=== PATIENT | female | born 1975 | race Caucasian/White ===

== ENCOUNTER 2016-12-19 14:40 | Emergency (ER) | payer MEDICAID ==
[2016-12-19 14:41] VITALS: BMI 30.7
[2016-12-19 15:05] VITALS: BP 110/75; RESP 18; TEMP 99.1; O2SAT 99
[2016-12-19] MEDS ORDERED: Sodium Chloride 0.9% 1,000 ML IV STA (15:19)
--- NOTE | 2016-12-19 15:32 | ED PDOC ---
HPI: Headache Time Seen by Provider: 12/19/16 15:15 Chief Complaint (Nursing): Headache Chief Complaint (Provider): Headache History Per: Patient History/Exam Limitations: no limitations Onset/Duration Of Symptoms: Days (x 1 month) Additional Complaint(s): Mirna is a 41 y/o female who presents to the ED complaining of increasing frequency of headaches behind her right eye over the last month. Seen by PMD and given Rx for Motrin with no relief. Notes additional left arm and left neck pain, with numbness and pain in 4th and 5th digits of left hand. 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 She has an appointment with Neurology scheduled for 01/03/17. PMD: Salomón Quinn Past Medical History Reviewed: Historical Data, Nursing Documentation, Vital Signs Vital Signs: Last Vital Signs Temp 99.1 F 12/19/16 15:02 Pulse 95 H 12/19/16 15:02 Resp 18 12/19/16 15:02 BP 110/75 12/19/16 15:02 Pulse Ox 99 12/19/16 15:02 - Medical History PMH: Migraine (Tumor behind right eye) - Surgical History Other surgeries: Resection of tumor x2 - Family History Family History: States: Unknown Family Hx - Home Medications Home Medications: Ambulatory Orders Medication Instructions Recorded Oxycodone HCl/Acetaminophen 325 mg PO PRN 06/24/15 [Oxycodon-Acetaminophen 2.5-325] Naproxen 1 tab PO BID PRN #14 tab 12/19/16 diaZEpam [Valium] 5 mg PO Q6 PRN #4 tab 12/19/16 - Allergies Allergies/Adverse Reactions: Allergies Allergy/AdvReac Type Severity Reaction Status Date / Time No Known Allergies Allergy Verified 12/19/16 15:02 Review of Systems ROS Statement: Except As Marked, All Systems Reviewed And Found Negative Musculoskeletal: Positive for: Neck Pain (left), Arm Pain (left) Neurological: Positive for: Numbness (and pain to the 4th and 5th fingers of left hand), Headache Physical Exam - Reviewed Nursing Documentation Reviewed: Yes Vital Signs Reviewed: Yes - Physical Exam Appears: Positive for: Non-toxic, No Acute Distress Head Exam: Positive for: ATRAUMATIC, NORMOCEPHALIC. Negative for: NORMAL INSPECTION (Right temporal region signs of craniectomy) Skin: Positive for: Normal Color, Warm, Dry Eye Exam: Positive for: EOMI, Normal appearance, PERRL Neck: Positive for: Normal, Painless ROM, Supple Cardiovascular/Chest: Positive for: Regular Rate, Rhythm. Negative for: Murmur Respiratory: Positive for: Normal Breath Sounds. Negative for: Accessory Muscle Use, Respiratory Distress Extremity: Positive for: Normal ROM, Other (Good hair salon manager strength, 5/5 strength throughout). Negative for: Deformity Neurologic/Psych: Positive for: Alert, news writer II-XII (intact), Oriented (x3). Negative for: Motor/Sensory Deficits, Facial Droop - Laboratory Results Result Diagrams: 12/19/16 15:43 12/19/16 15:43 - ECG O2 Sat by Pulse Oximetry: 99 (RA) Pulse Ox Interpretation: Normal - Progress ED Course And Treament: morphine 4 mg iv x 1 dose zofran 4 mg iv x [address] RESULTS D/W DR. GONGORA. PATIENT HAS HAD HEADACHE X 3 WEEKS AND IS FOLLOWING UP WITH PMD TODAY FOR MRI RX, WILL NOT REPEAT IN ED WITH IV CONTRAST. Medical Decision Making Medical Decision Making: Time: 15:19 Initial Plan: --Ordered labs --Started patient on IV fluids and Reglan --Pending CTs C-spine and Head w/o contrast Time: 16:40 CT Head w/o contrast: FINDINGS: HEMORRHAGE: No intracranial hemorrhage. BRAIN: The lesion best seen in the right middle cranial fossa in prior brain MRI dated 05/26/2015, is poorly differentiated from normal right temporal lobe on the current study and follow-up contrast CT is advised or MRI without contrast for additional characterization if clinically warranted. 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 The remainder of the intracranial contents is remarkable only for dense fall seen calcifications in the periphery of the superior falx. VENTRICLES: Unremarkable. No hydrocephalus. CALVARIUM: As above in brain parenchyma section. PARANASAL SINUSES: Unremarkable as visualized. No significant inflammatory changes. MASTOID AIR CELLS: Unremarkable as visualized. No inflammatory changes. OTHER FINDINGS: None. IMPRESSION: Stable unenhanced head CT compared to 06/24/2015 CT as well as brain MRI 2015 with right middle cranial fossa mass and prior right temporal and sphenoid craniectomy/ cranioplasty again evident. Differentiation of the mass from right temporal lobe and characterization of its stability is poor given the lack of intravenous contrast. Its density is identical to normal brain parenchyma. Follow-up CT or MRI with without contrast is advised as clinically warranted. Please see discussion above. Time: 16:58 CT Cervical Spine w/o contrast: FINDINGS: VERTEBRAE: There is straightening of the cervical spine with loss of normal cervical lordosis. Vertebral alignment is normal. Vertebral height is maintained. There is no acute fracture or bone destruction. There is no spondylolisthesis. The craniocervical junction is normal. The atlantoaxial joint is normal. DISCS/SPINAL CANAL/NEURAL FORAMINA: The disc heights are maintained. No spinal canal or neural foraminal stenosis. PARASPINAL SOFT TISSUES: There is no prevertebral soft tissue thickening. The paraspinous soft tissues are normal OTHER FINDINGS: The lung apices are clear. IMPRESSION: No acute fracture, spondylolisthesis or significant degenerative disc disease. The spinal canal is patent. Straightening of the cervical spine may be positional or related to muscle spasm. Time: 17:20 --Patient continuing to complain of pain, 10/23 --Will give IV Zofran and Morphine Scribe Attestation: Documented by Aliza Aldrich, acting as a scribe for Lisa Sims PA-C Provider Scribe Attestation: All medical record entries made by the Scribe were at my direction and personally dictated by me. I have reviewed the chart and agree that the record accurately reflects my personal performance of the history, physical exam, medical decision making, and the department course for this patient. I have also personally directed, reviewed, and agree with the discharge instructions and disposition. Disposition - Clinical Impression Clinical Impression: Headache, Cervical radiculopathy - Patient ED Disposition Is Patient to be Admitted: No Counseled Patient/Family Regarding: Studies Performed, Diagnosis, Need For Followup - Disposition Referrals: Salomón Quinn MD [Primary Care Provider] - Disposition: Routine/Home Disposition Time: 18:29 Condition: FAIR Prescriptions: diaZEpam [Valium] 5 mg PO Q6 PRN #4 tab PRN Reason: Muscle Spasm Naproxen 1 tab PO BID PRN #14 tab PRN Reason: Headache Instructions: Acute Headache (ED), Cervical Radiculopathy (ED) Forms: [employer] (Armenian)
[2016-12-19 15:53] LABS: BASO # 0.1 K/uL (0.0-0.2); BASO % 1.1 % (0.0-2.0); EOS # 0.1 K/uL (0.0-0.7); EOS % 1.5 % (0.0-4.0); LYMPH # 1.1 K/uL (1.0-4.3); LYMPH % 21.8 % (20.0-40.0); MEAN CELL VOLUME 83.8 fl (81.0-99.0); MEAN CORPUSCULAR HEMOGLOBIN 26.8 pg (27.0-31.0); MEAN PLATELET VOLUME 8.2 fl (7.2-11.7); MONO # 0.6 K/uL (0.0-0.8); MONO % 10.8 % (0.0-10.0); NEUT # 3.4 K/uL (1.8-7.0); NEUT % 64.8 % (50.0-75.0); NRBC % 0.1 % (0.0-0.0); RED CELL DISTRIBUTION WIDTH 16.1 % (11.5-14.5); WHITE BLOOD COUNT 5.2 K/uL (4.8-10.8)
[2016-12-19 16:02] LABS: BLOOD UREA NITROGEN 10 mg/dl (7-17); CALCIUM 8.7 mg/dL (8.4-10.2); CARBON DIOXIDE 23 mmol/L (22-30); CHLORIDE 107 mmol/L (98-107); GFR AFRICAN-AMERICAN > 60; GLUCOSE,RANDOM 125 mg/dL (65-105); POTASSIUM 3.7 MMOL/L (3.6-5.0); SODIUM 138 mmol/l (132-148)
--- NOTE | 2016-12-19 16:41 | CT ---
PROCEDURE: CT HEAD WITHOUT CONTRAST. HISTORY: headache COMPARISON: None available. TECHNIQUE: Axial computed tomography images were obtained through the head/brain without intravenous contrast. Radiation dose: Total exam DLP = 884 mGy-cm. This CT exam was performed using one or more of the following dose reduction techniques: Automated exposure control, adjustment of the mA and/or kV according to patient size, and/or use of iterative reconstruction technique. FINDINGS: HEMORRHAGE: No intracranial hemorrhage. BRAIN: The lesion best seen in the right middle cranial fossa in prior brain MRI dated 05/26/2015, is poorly differentiated from normal right temporal lobe on the current study and follow-up contrast CT is advised or MRI without contrast for additional characterization if clinically warranted. 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 The remainder of the intracranial contents is remarkable only for dense fall seen calcifications in the periphery of the superior falx. VENTRICLES: Unremarkable. No hydrocephalus. CALVARIUM: As above in brain parenchyma section. PARANASAL SINUSES: Unremarkable as visualized. No significant inflammatory changes. MASTOID AIR CELLS: Unremarkable as visualized. No inflammatory changes. OTHER FINDINGS: None. IMPRESSION: Stable unenhanced head CT compared to 06/24/2015 CT as well as brain MRI 05/26/2015 with right middle cranial fossa mass and prior right temporal and sphenoid craniectomy/ cranioplasty again evident. Differentiation of the mass from right temporal lobe and characterization of its stability is poor given the lack of intravenous contrast. Its density is identical to normal brain parenchyma. Follow-up CT or MRI with without contrast is advised as clinically warranted. Please see discussion above.
--- NOTE | 2016-12-19 17:00 | CT ---
PROCEDURE: CT Cervical Spine without contrast HISTORY: Neck pain and left arm radiculopathy COMPARISON: None available. TECHNIQUE: Axial computed tomography images were obtained of the cervical spine without the use of intravenous contrast. Coronal and sagittal reformatted images were created and reviewed. Radiation dose: Total exam DLP = 463.07 mGy-cm. This CT exam was performed using one or more of the following dose reduction techniques: Automated exposure control, adjustment of the mA and/or kV according to patient size, and/or use of iterative reconstruction technique. FINDINGS: VERTEBRAE: There is straightening of the cervical spine with loss of normal cervical lordosis. Vertebral alignment is normal. Vertebral height is maintained. There is no acute fracture or bone destruction. There is no spondylolisthesis. The craniocervical junction is normal. The atlantoaxial joint is normal. DISCS/SPINAL CANAL/NEURAL FORAMINA: The disc heights are maintained. No spinal canal or neural foraminal stenosis. PARASPINAL SOFT TISSUES: There is no prevertebral soft tissue thickening. The paraspinous soft tissues are normal OTHER FINDINGS: The lung apices are clear. IMPRESSION: No acute fracture, spondylolisthesis or significant degenerative disc disease. The spinal canal is patent. Straightening of the cervical spine may be positional or related to muscle spasm.
[2016-12-19] MEDS ORDERED: HYDROmorphone 0.5 mg/0.5 ml ISec IVP STA (17:21)
[2016-12-19 18:41] VITALS: PULSE 76
== END 2016-12-19 18:41 | disposition home or self-care (01) ==
LOC: H.ER 14:40
DX: R51 Headache (principal); M54.12 Radiculopathy, cervical region
CPT/HCPCS: 70450; 72125; 80048; 81025; 85025; 85610; 85730; 96361; 96374; 96375; 99283; J2270; J2405; J2765; J7040